=== PATIENT | male | born 1975 | race Caucasian/White ===

== ENCOUNTER 2018-06-26 05:58 | Day surgery (SDC) | payer BC ==
[~2018-06-26 05:58] MED LIST: AMLO10TA8 PO; LISI10TA2 PO
[2018-06-26] MEDS ORDERED: BUPIVAC MPF-EPI 0.5%-1:200000 30 ML VIAL. ONE (06:53)
[2018-06-26] MEDS ORDERED: HYDROmorphone 2 MG/ML VIAL IV PRN (07:00)
[2018-06-26] MEDS ORDERED: ONDANSETRON PF 4 MG/2 ML VIAL. IV PRN (07:00)
[2018-06-26] MEDS ORDERED: fentaNYL PF VIAL 100 MCG/2 ML VIAL IV PRN ×2 (07:00)
[2018-06-26] MEDS ORDERED: IV RINGERS,LACTATED 1000ML 1,000 ML IV SCH (07:00)
[2018-06-26] MEDS ORDERED: LIDOCAINE 1% PF 2 ML VIAL. ID PRN (07:00)
[2018-06-26] MEDS ORDERED: PROCHLORPERAZINE 10 MG/2 ML VIAL. IV PRN (07:00)
[2018-06-26] MEDS ORDERED: MORPHINE SULFATE 2 MG/ML VIAL. IV PRN (07:00)
[2018-06-26] MEDS ORDERED: SCOPOLAMINE 1.5MG PATCH. TD SCH (07:18)
[2018-06-26] MEDS ORDERED: SCOPOLAMINE 1.5MG PATCH. TD ONE (07:19)
[2018-06-26] MEDS ORDERED: ONDANSETRON PF 4 MG/2 ML VIAL. ONE (07:40)
[2018-06-26] MEDS ORDERED: NEOSTIGMINE 10 MG/10 ML VIAL. ONE (07:40)
[2018-06-26] MEDS ORDERED: LIDOCAINE 2% PF 5 ML VIAL. ONE (07:40)
[2018-06-26] MEDS ORDERED: MIDAZOLAM HCL/PF 2 MG/2 ML VIAL. ONE (07:40)
[2018-06-26] MEDS ORDERED: fentaNYL PF VIAL 100 MCG/2 ML VIAL ONE ×3 (07:40→10:07)
[2018-06-26] MEDS ORDERED: PROPOFOL 20 ML IV ONE (07:40)
[2018-06-26] MEDS ORDERED: ROCURONIUM 50 MG/5 ML VIAL. ONE ×2 (07:40→08:48)
[2018-06-26] MEDS ORDERED: DEXAMETHASONE SOD PHOS 20 MG/5 ML VIAL. ONE (07:40)
[2018-06-26] MEDS ORDERED: GLYCOPYRROLATE 1 MG/5 ML VIAL. ONE (07:41)
[2018-06-26] MEDS ORDERED: PHENYLEPHRINE 10 MG/ML VIAL. ONE (08:57)
[2018-06-26] MEDS ORDERED: SEVOFLURANE 61 TO 120 MINUTES. IH ONE (09:21)
--- NOTE | 2018-06-26 09:29 | PDOC4 ---
Operative Note Operative Note Date: 06/26/2018 Preoperative diagnosis: Incarcerated ventral hernia Postoperative diagnosis: Incarcerated ventral hernia 2 Procedure: Robotic-assisted laparoscopic ventral hernia repair with mesh Surgeon: Abdon Specimen: None Dictation: Patient is a 42-year-old male complaining of a painful bulge just above the umbilicus and at the umbilicus the procedure of robotic-assisted laparoscopic ventral hernia repair with mesh was explained to the patient detail risk benefits were also discussed including bleeding infection injury to intra-abdominal contents possibly necessitating further or open operations alternatives to this procedure also discussed with the patient who seemed to understand and gave both verbal and written consent to have the procedure performed. Patient was taken to the operating room placed in supine position general anesthesia was initiated once patient was sleep and intubated his abdomen was prepped and draped usual sterile fashion using ChloraPrep. An area on the left upper quadrant was injected with quarter percent Marcaine with epinephrine incision was made below blade scalpel and a 5 mm Visiport was placed under direct visualization into the abdomen creating pneumoperitoneum once this was complete a da Mariel port placed in the left mid abdomen and a second da Mariel port was placed in the left lower abdomen the 5 mm Visiport was changed out to a da Mariel port. The da Mariel robot was then brought in and docked to all port sites surgeon went to the robotic console using grasper and Endo Corinna scissors the incarcerated omentum within the hernia defects were reduced. It was noted that there were 2 hernias side by side the hernia defects were then closed with a running 20V LOC nonabsorbable suture and covered with ventral light ST mesh this was sewn into place with a 20V lock absorbable suture. Once this was complete da Mariel robot was undocked all ports removed the pneumoperitoneum was reduced and the port sites were closed with 40 subarticular Monocryl. Mastisol Steri-Strips and island dressings were applied patient was waken expected in the operating room taken to recovery in stable condition all sponge instrument needle counts listed as correct this may blood loss 5 mL MARISOL COLE MD Jun 26, 2018 09:29
--- NOTE | 2018-06-26 09:30 | DISCH ---
DISCHARGE INSTRUCTIONS Condition on Discharge Condition on Discharge: Stable Activity After Discharge Activity Instructions for Disc: Avoid exertion Other activity instructions: no lifting more than 20 pounds for 2 weeks Diet after Discharge Diet after Discharge: Regular Wound Incision Care Other wound/incision instructi: May shower in 24 hours Contacting the after DC Call your doctor for: If your condition worsens Follow-Up Follow up with: Dr. Cole in 2 weeks MARISOL COLE MD Jun 26, 2018 09:30
[2018-06-26] MEDS ORDERED: OXYC1TAB15 PO (09:51)
[2018-06-26] MEDS ORDERED: oxyCODONE/APAP 5/325 1 TAB TABLET PO ONE ×2 (10:00)
[2018-06-26 11:30] VITALS: BP 137/74
== END 2018-06-26 11:30 | disposition home or self-care (01) ==
LOC: SURG 05:58
PROVIDERS: ATTEND Surgery
DX: K43.6 Other and unspecified ventral hernia with obstruction, without gangrene (principal); I10 Essential (primary) hypertension; Z72.89 Other problems related to lifestyle; Z79.899 Other long term (current) drug therapy
CPT/HCPCS: 49653; A7015; C1781; J1100; J2001; J2250; J2405; J2704; J2710; J3010; J3490; J7120; S2900